=== PATIENT | male | born 1970 | race African-American/Black ===

== ENCOUNTER → 2017-05-08 | Outpatient (CLI) | payer BC ==
[2017-05-08 16:28] LABS: INR 1.3 (0.8-3.0); PROTHROMBIN TIME 14.9 SECONDS (9.7-12.8)
[2017-05-08 16:33] LABS: ALBUMIN 4.1 gm/dL (3.5-5.0); BILIRUBIN,DIRECT 0.8 mg/dL (0.0-0.4); BILIRUBIN,TOTAL 1.1 mg/dL (0.0-1.0); CALCIUM 9.1 mg/dL (8.4-10.2); CREATININE, serum 0.75 mg/dL (0.66-1.25); POTASSIUM 3.7 mmol/L (3.4-5.0); TOTAL PROTEIN 9.5 gm/dL (6.4-8.2)
[2017-05-09 00:04] LABS: HEPATITIS B SURFACE AB-QL Negative (())
== END ==
LOC: COL.LAB 15:37
PROVIDERS: Registered Nurse
DX: R74.8 Abnormal levels of other serum enzymes (principal)

== ENCOUNTER → 2017-05-12 | Outpatient (REF) | LOC: WSOH 09:28 | DX: Z02.1 Encounter for pre-employment examination (principal) ==

== ENCOUNTER → 2017-05-12 | Outpatient (CLI) | payer BC | LOC: COL.RAD 10:38 | DX: R16.1 Splenomegaly, not elsewhere classified (principal); K83.8 Other specified diseases of biliary tract ==

== ENCOUNTER → 2017-07-18 | Outpatient (CLI) | payer BC ==
[~2017-07-18] VITALS: Ht 163 cm; Wt 73.9 kg
[2017-07-18] VITALS (10 sets, daily range): BP systolic 121–144; BP diastolic 70–86; PULSE 69–78
== END ==
LOC: COL.RAD 13:00
DX: R76.8 Other specified abnormal immunological findings in serum (principal); R74.8 Abnormal levels of other serum enzymes; D69.6 Thrombocytopenia, unspecified

== ENCOUNTER 2019-06-25 17:15 | Inpatient (IN) | payer BC ==
[~2019-06-25] VITALS: Ht 162.6 cm; Wt 73.6 kg
[2019-06-25 18:27] LABS: BASO % 0.3 % (0.0-2.0); EOS % 0.1 % (0-4.0); GRAN # 5.8 (1.4-6.5); GRAN % 83.2 % (42.2-75.2); HEMOGLOBIN 11.3 g/dl (13.5-18.0); LYMPH # 0.6 (1.2-3.4); LYMPH % 8.4 % (20.0-51.0); MEAN CELL VOLUME 98 fl (80.0-100.0); MEAN CORPUSCULAR HEMOGLOBIN 34 pg (27.0-31.0); MEAN CORPUSCULAR HGB CONC 35 g/dl (33.0-37.0); MONO # 0.5 (0.1-0.6); MONO % 7.7 % (1.7-9.3); PLATELET COUNT 52 K/mm3 (130-400); RED BLOOD COUNT 3.36 M/mm3 (4.20-5.60); REDCELL DISTRIBUTION WIDTH-CV 15.9 % (11.5-14.5)
[2019-06-25 18:29] LABS: ALBUMIN 2.9 gm/dL (3.5-5.0); BILIRUBIN,TOTAL 4.1 mg/dL (0.0-1.0); CALCIUM 7.7 mg/dL (8.4-10.2); CREATININE, serum 0.66 (0.66-1.25); HEMATOCRIT 32.8 % (42.0-52.0); POTASSIUM 3.5 mmol/L (3.4-5.0); TOTAL PROTEIN 8.6 gm/dL (6.4-8.2)
[2019-06-25 19:03] LABS: COLLECTION METHOD CLEAN CATCH
[2019-06-25 19:10] LABS: MUCOUS Present /lpf; PH 6 (5-8); SQUAMOUS EPITHELIAL 0-2 /hpf; URINE APPEARANCE Hazy; URINE BACTERIA Rare /hpf; URINE BILIRUBIN Positive (NEGATIVE); URINE BLOOD Negative (NEGATIVE); URINE COLOR Amber; URINE GLUCOSE Negative (NEGATIVE); URINE KETONE Negative (NEGATIVE); URINE LEUKOCYTE ESTERASE Negative (NEGATIVE); URINE NITRATE Negative (NEGATIVE); URINE PROTEIN(semi-quant) Negative (NEGATIVE); URINE UROBILINOGEN >=4.0 mg/dL (NEGATIVE)
[2019-06-25 19:16] LABS: INR 2.3 (0.8-3.0); PROTHROMBIN TIME 27.1 SECONDS (9.7-12.8)
--- NOTE | 2019-06-25 22:00 | NUR ---
Admission assessment complete. Patient awake, in bed. at bedside, and is answering most questions for patient. Patient states, his abdomen is painful, 7/10. States he has a headache, unable to rate, but "wants it gone." IV in right AC flushed with NS, good blood return. IVF started at 75ml/hr per order. IV Flagyl started per order. Unable to override other ordered abx in [employer], and unable to review chart on [employer] to find out why medication cannot be overridden, d/t meditech being down for the last few hours. Patient and updated. Denies further needs at this time. Will continue to monitor.
[2019-06-26] VITALS (8 sets, daily range): BP systolic 105–131; BP diastolic 56–66; PULSE 91–108; TEMP 98.8–100.7
--- NOTE | 2019-06-26 02:00 | NUR ---
Written medication orders placed in computer, computers down for the several hours surrounding patient's admission to the floor. IV abx ordered in ER, not started. Once patient arrived to the floor, IVF started and Flagyl IV given because they were able to be overridden in [employer]. Unable to pull ordered Cefotaxime IV d/t not being able to be overridden. Unable to figure out reason as to why the medication could not be pulled from [employer] d/t computers being down. When placing medication orders, it was discovered that there is a shortage of IV Cefotaxime and another abx needed to be ordered in it's place. Called Dr. Shipman and notified her of this. Explained to her why only the Flagyl was given. Still appeared upset that the Cefotaxime was not given, even though an explanation was offered. Order for a different abx placed, medication to be given CAROLYN. Lobby Attendant updated. malware analyst also aware.
--- NOTE | 2019-06-26 04:34 | NUR ---
Temp 100.4. Order to notify physician is >100.4. Will reassess and notify physician if temp is greater than 100.4.
--- NOTE | 2019-06-26 04:53 | NUR ---
Patient in bed, sleeping. Appears comfortable. at bedside, sleeping. Will reassess pain when awake.
--- NOTE | 2019-06-26 05:21 | NUR ---
Patient in bed, awake. States pain is 8/10 in abdomen. Prn pain medication given. Will continue to monitor.
[2019-06-26 07:15] LABS: BASO % 0.3 % (0.0-2.0); EOS % 0.1 % (0-4.0); GRAN # 5.3 (1.4-6.5); GRAN % 75.7 % (42.2-75.2); HEMOGLOBIN 10.2 g/dl (13.5-18.0); LYMPH % 13.8 % (20.0-51.0); MEAN CELL VOLUME 99 fl (80.0-100.0); MEAN CORPUSCULAR HEMOGLOBIN 34 pg (27.0-31.0); MEAN CORPUSCULAR HGB CONC 35 g/dl (33.0-37.0); MEAN PLATELET VOLUME 13.3 fl (7.4-10.4); MONO # 0.7 (0.1-0.6); MONO % 9.7 % (1.7-9.3); RED BLOOD COUNT 2.99 M/mm3 (4.20-5.60); REDCELL DISTRIBUTION WIDTH-CV 16.2 % (11.5-14.5)
[2019-06-26 07:23] LABS: PARTIAL THROMBOPLASTIN TIME 49.4 SECONDS (26.0-37.0)
[2019-06-26 07:31] LABS: ALBUMIN 2.2 gm/dL (3.5-5.0); BILIRUBIN,TOTAL 5.2 mg/dL (0.0-1.0); CALCIUM 7.1 mg/dL (8.4-10.2); CREATININE, serum 0.71 (0.66-1.25); MAGNESIUM 1.5 mg/dL (1.6-2.3); POTASSIUM 3.1 mmol/L (3.4-5.0); TOTAL PROTEIN 7.1 gm/dL (6.4-8.2)
[2019-06-26 07:39] LABS: HEMATOCRIT 29.5 % (42.0-52.0)
[2019-06-26 07:40] LABS: PLATELET COUNT 47 K/mm3 (130-400)
[2019-06-26 07:44] LABS: INR 2.6 (0.8-3.0); PROTHROMBIN TIME 30.8 SECONDS (9.7-12.8)
--- NOTE | 2019-06-26 09:00 | NUR ---
Patient laying in bed, at the bedside. A&O, has a language barrier, assist with translating for patient. Denies pain and discomfort. VSS. IV CDI, fluids infusing. Urinal at the bedside. Patient instructed to use and call nursing staff. No further needs expressed from patient. Call light within reach
--- NOTE | 2019-06-26 10:30 | NUR ---
Patients took photo of IV fluids. Nurse asked patients what she took a pictuer of and she did not respond. Nurse informed patients that the IV will not continue running if there is no fluid in the cassette. The is worried about air getting into the patients vein. Nures continuing to inform patients about what the nurse is doing when administering medication. Will continue to monitor. Call light within reach
--- NOTE | 2019-06-26 11:39 | NUR ---
Visited with the patient and provided spiritual care.
[2019-06-26 16:08] LABS: INR 2.8 (0.8-3.0); PROTHROMBIN TIME 33.9 SECONDS (9.7-12.8)
--- NOTE | 2019-06-26 16:53 | NUR ---
Plan:To return home with his Cayla ([phone] as care support. Patient indicated that he would also like Fati listed as his emergency contact. patient does not have a DPOA and declined one at this time. Resides in [facility], and will return home by taxi. Assess: MITCHELL's met with patient and his was also present. Patient gave permission to discuss information in front of . Patient reports that he does not utilze DME's and that he does not need assistance to attend personal care at home. Patient reports that he does not currently have a PCP, and he does not have follow up appointments to see a provider. patient reports that he gets his medications from [facility] on [address] without concerns. Action: No additional concerns were identified. Dimas declined [facility] services. Patient was educated about community resources and supports.
--- NOTE | 2019-06-26 18:19 | NUR ---
Patient has been resting in bed throughout the shift. at the bedside. A&O. Reporting pain in abdomen only when standing, did not request pain medication. VSS. Patient was NPO for most of the shift pending a paracentesis. Patient unable to have paracentesis and able to eat. IV CDI, fluids infusing. Patient on a fluid restriction of 1.5L and tolerated well. No futher needs expressed from patient. Call light within reach
--- NOTE | 2019-06-26 20:17 | NUR ---
PT IN BED WITH HOB AT 45 DEGREE ANGLE. PT DENIES PAIN LONG HE LAYS STILL. PT'S ABDOMEN IS DISTENDED AND HAS PAIN ON PALPATION IN RIGHT MID AND LOWER QUAD. NO NEEDS AT THIS TIME, CALL LIGHT WITHIN REACH.
[2019-06-27] VITALS (8 sets, daily range): BP systolic 96–124; BP diastolic 58–77; PULSE 81–104; TEMP 97.5–99.9
--- NOTE | 2019-06-27 02:56 | NUR ---
CALLED ANNIE GONZALES IN REFERENCE TO PT'S TEMP OF 100.7 AT 2315. RECEIVED A 1X DOSE OF MOTRIN 400 MG PO. PT WAS GIVEN MOTRIN. RECHECKED PT'S TEMP AT 0015 AND TEMP WAS 102.5. PLACED COOL CLOTH ON PT'S HEAD AND RECALL ANNIE GONZALES. ADVISED OF TEMP OF 102.5. RECEIVED ORDERS TO TAKE BLANKETS OFF PT AND PUT COOL CLOTHS ON FOREHEAD AND IN ARMPITS. RECHECK PT'S TEMP ABOUT 0145 AND TEMP WAS 99.7. PT'S SKIN ALSO FELT COOLER. PT RESTING IN BED WITH AT BEDSIDE. PT DENIES PAIN AND DISCOMFORT AT THIS TIME, AND NO NEEDS. CALL LIGHT WITHIN REACH.
--- NOTE | 2019-06-27 06:35 | NUR ---
CALLED DR. MAIN AND ADVISED OF CONSULT, BUT ADVISED HE HAD ALREADY SEEN PT YESTERDAY.
[2019-06-27 07:37] LABS: BASO % 0.5 % (0.0-2.0); EOS # 0.1 (0.0-0.7); EOS % 0.8 % (0-4.0); GRAN # 3.9 (1.4-6.5); GRAN % 59.4 % (42.2-75.2); LYMPH # 1.4 (1.2-3.4); LYMPH % 21.1 % (20.0-51.0); MEAN CELL VOLUME 100 fl (80.0-100.0); MEAN CORPUSCULAR HGB CONC 34 g/dl (33.0-37.0); MEAN PLATELET VOLUME 13.5 fl (7.4-10.4); MONO # 1.1 (0.1-0.6); MONO % 17.6 % (1.7-9.3); RED BLOOD COUNT 2.56 M/mm3 (4.20-5.60); REDCELL DISTRIBUTION WIDTH-CV 16.1 % (11.5-14.5)
[2019-06-27 07:42] LABS: HEMATOCRIT 25.6 % (42.0-52.0); HEMOGLOBIN 8.8 g/dl (13.5-18.0); INR 3.3 (0.8-3.0); MEAN CORPUSCULAR HEMOGLOBIN 34 pg (27.0-31.0); PROTHROMBIN TIME 39.9 SECONDS (9.7-12.8)
[2019-06-27 07:43] LABS: PLATELET COUNT 32 K/mm3 (130-400)
[2019-06-27 07:48] LABS: ALBUMIN 2.7 gm/dL (3.5-5.0); BILIRUBIN,TOTAL 4.9 mg/dL (0.0-1.0); CALCIUM 7.4 mg/dL (8.4-10.2); CREATININE, serum 0.82 (0.66-1.25); POTASSIUM 3.7 mmol/L (3.4-5.0); TOTAL PROTEIN 6.7 gm/dL (6.4-8.2)
--- NOTE | 2019-06-27 09:29 | NUR ---
Pt is awake and A/Ox4, sitting up in bed. is at bedside. Pt denies pain at this time and reports that abdominal distention is "better" today. Pt has INTs to bilateral FAs, free of complications. Pt is up as tolerated in room. Updated on plan of care by Dr. Walsh. Pt to eat breakfast and then become NPO for potential paracentesis later today. Vitamin K given per order without difficulty. Pt denies any other needs.
[2019-06-27 13:02] LABS: INR 3.3 (0.8-3.0); PROTHROMBIN TIME 39.5 SECONDS (9.7-12.8)
--- NOTE | 2019-06-27 17:45 | NUR ---
Pt has has an overall uneventful shift. He has continued to deny pain. Urine output has increased since starting IV lasix. Pt ambulating around hallways with . Denies any other needs.
--- NOTE | 2019-06-27 20:30 | NUR ---
Report received from MARIEL Patel. Patient resting in bed. at bedside. Assessment complete. Alert and oriented. Denies pain at this time. Lungs CTA. Lasix given. Patient denies any further needs at this time. Call light within reach.
[2019-06-28 00:06] VITALS: BP 100/46; PULSE 104; TEMP 99.2
[2019-06-28 04:32] VITALS: BP 107/66; PULSE 96; TEMP 99
--- NOTE | 2019-06-28 06:01 | NUR ---
Patient had uneventful night. Resting in bed. Received flagyl and merrim throughout the night. Denied pain throughout night. sleeping in room. Denies any further needs at this time. Call light within reach.
--- NOTE | 2019-06-28 06:43 | NUR ---
Report given to MARIEL Nicole
[2019-06-28 06:49] LABS: HEMOGLOBIN 10.3 g/dl (13.5-18.0); MEAN CELL VOLUME 102 fl (80.0-100.0); MEAN CORPUSCULAR HEMOGLOBIN 35 pg (27.0-31.0); MEAN CORPUSCULAR HGB CONC 34 g/dl (33.0-37.0); MEAN PLATELET VOLUME 13.5 fl (7.4-10.4); RED BLOOD COUNT 2.95 M/mm3 (4.20-5.60); REDCELL DISTRIBUTION WIDTH-CV 16.3 % (11.5-14.5)
[2019-06-28 06:50] LABS: PLATELET COUNT 43 K/mm3 (130-400)
[2019-06-28 07:01] LABS: ALBUMIN 2.9 gm/dL (3.5-5.0); BILIRUBIN,TOTAL 5.2 mg/dL (0.0-1.0); CREATININE, serum 0.77 (0.66-1.25); INR 4.1 (0.8-3.0); POTASSIUM 3.8 mmol/L (3.4-5.0); TOTAL PROTEIN 7.2 gm/dL (6.4-8.2)
[2019-06-28 07:05] LABS: PROTHROMBIN TIME 49.5 SECONDS (9.7-12.8)
[2019-06-28 07:47] LABS: HIV 1/2 Antibodies Non-Reactive; HIV-1p24 Antigen Non-Reactive
[2019-06-28 08:06] VITALS: BP 97/51; PULSE 96; TEMP 99.1
[2019-06-28 08:29] LABS: ANISOCYTOSIS 1+; EOSINOPHIL 1 % (0-4); LYMPHOCYTE 16 % (20.0-51.0); NEUTROPHILS 78 % (42.0-75.2); PLATELET ESTIMATE DECREASED (NORMAL)
--- NOTE | 2019-06-28 11:23 | NUR ---
Initial visit; Manager Of Transportation introduced herself to patient letting him know Spiritual Care is available. Nurse came in, Manager Of Transportation will follow up.
[2019-06-28 12:25] VITALS: BP 111/68; PULSE 90; TEMP 98.6
[2019-06-28 13:28] LABS: INR 24.6 (0.8-3.0); PROTHROMBIN TIME 317.9 SECONDS (9.7-12.8)
[2019-06-28 16:16] LABS: HEPATITIS B SURFACE ANTIBODY <2.0 (()); HEPATITIS C VIRUS ANTIBODY Negative (Negative)
[2019-06-28 16:32] VITALS: BP 111/68; PULSE 90; TEMP 98.6
[2019-06-28 17:12] LABS: HEPATITIS B CORE AB,TOTAL Positive (())
--- NOTE | 2019-06-28 18:03 | NUR ---
Patient transferring to [facility], he is being transported by [facility], is riding with him in he ambulance and is present at time of discharge, I have attempted to call report to receiving nurse/ I left them my phone number for call back/ will give report when I get a return call
[2019-06-29 13:49] LABS: HEPATITIS AB (HAV) IGG INDEX 11.51 Index (<=1.00)
[2019-06-29 15:26] LABS: HEPATITIS Be ANTIGEN Negative (Negative)
[2019-07-01 12:54] LABS: HEPATITIS B SURFACE ANTIGEN Positive (Negative)
[2019-07-01 14:04] LABS: HEPATITIS B LOG IU 2.76 Log/mL (<=0.99)
== END 2019-06-28 18:04 | disposition other institution, planned readmission (95) | DRG 432 ==
LOC: COL.ER 17:15 → MEDICAL 20:47
PROVIDERS: Emergency Medicine; Internal Medicine Gastroenterology; Physician Assistant; ADMIT Family Medicine
DX: K74.69 Other cirrhosis of liver (principal); K65.2 Spontaneous bacterial peritonitis; R18.8 Other ascites; K76.6 Portal hypertension; J90 Pleural effusion, not elsewhere classified; B19.10 Unspecified viral hepatitis B without hepatic coma; J98.11 Atelectasis; R16.1 Splenomegaly, not elsewhere classified; D64.9 Anemia, unspecified; D69.6 Thrombocytopenia, unspecified; E87.6 Hypokalemia; E83.42 Hypomagnesemia; R79.1 Abnormal coagulation profile; E88.09 Other disorders of plasma-protein metabolism, not elsewhere classified
CPT/HCPCS: 99232-AI; 99239; A4216; A9284; J0692; J1940; J2270; J3010; J3430; J3475; J7030; P9047; Q9967

== ENCOUNTER 2020-03-09 03:23 | Emergency (ER) | payer BC ==
[~2020-03-09] VITALS: Wt 70.0 kg
[~2020-03-09 03:23] MED LIST: ALDACTONE50 MG PO; LASIX 40MG TABL40 MG PO; PROTONIX 40MG T40 MG PO; VEMLIDY25 MG PO; VITAMIN A10k; VITAMIN D 50,1.25 MG PO
[2020-03-09 03:44] LABS: BASO # 0.2 (0.0-0.2); EOS # 0.3 (0.0-0.7); GRAN # 2.4 (1.4-6.5); GRAN % 32.5 % (42.2-75.2); HEMOGLOBIN 10.9 g/dl (13.5-18.0); LYMPH # 3.6 (1.2-3.4); LYMPH % 48.9 % (20.0-51.0); MEAN CELL VOLUME 99 fl (80.0-100.0); MEAN CORPUSCULAR HEMOGLOBIN 33 pg (27.0-31.0); MEAN CORPUSCULAR HGB CONC 34 g/dl (33.0-37.0); MONO # 0.9 (0.1-0.6); MONO % 12.2 % (1.7-9.3); PLATELET COUNT 69 K/mm3 (130-400); REDCELL DISTRIBUTION WIDTH-CV 15.9 % (11.5-14.5)
[2020-03-09 03:46] LABS: HEMATOCRIT 32.5 % (42.0-52.0)
[2020-03-09 03:53] LABS: INR 2.3 (0.8-3.0); PROTHROMBIN TIME 25.5 SECONDS (9.7-12.8)
[2020-03-09 03:55] LABS: PARTIAL THROMBOPLASTIN TIME 46.8 SECONDS (26.0-37.0)
[2020-03-09 03:58] LABS: ALBUMIN 2.7 gm/dL (3.5-5.0); BILIRUBIN,TOTAL 2.8 mg/dL (0.0-1.0); CREATININE, serum 0.68 (0.66-1.25); MAGNESIUM 1.8 mg/dL (1.6-2.3); POTASSIUM 3.1 mmol/L (3.4-5.0)
[2020-03-09 05:39] LABS: ARTERIAL BLD GAS O2 SATURATION 99.8 % (92-100); ARTERIAL BLD GAS TCO2 CT 16.5; ARTERIAL BLOOD GAS BASE EXCESS -9.7 (-2-2); ARTERIAL BLOOD GAS HCO3 15.6 meq/L (22-26); ARTERIAL BLOOD GAS PCO2 31.9 mmHg (35-45); ARTERIAL BLOOD GAS PO2 329.5 mmHg (80-100); ARTERIAL BLOOD GAS pH 7.31 (7.35-7.45)
[2020-03-09 05:52] VITALS: TEMP 97.1
[2020-03-09 06:45] VITALS: BP 116/80; PULSE 113
== END 2020-03-09 06:45 | disposition short-term general hospital (02) ==
LOC: COL.ER 03:23
PROVIDERS: Emergency Medicine
DX: I62.9 Nontraumatic intracranial hemorrhage, unspecified (principal); G81.90 Hemiplegia, unspecified affecting unspecified side; G93.5 Compression of brain
CPT/HCPCS: C9132; J0330; J1953; J2704; J3010; J3430; J3480; J7030; P9035